=== PATIENT | female | born 1950 | race Caucasian/White ===

== ENCOUNTER → 2021-02-19 | Emergency (ER) | payer MEDICARE, OTHER ==
[~2021-02-19] MED LIST: Aspirin 81 mg Enteric Coated Tablet PO SCH; Aspirin Chewable 81 MG TAB ONE; Carvedilol 6.25 MG TAB PO SCH; Famotidine 20 MG TAB PO SCH; Lisinopril 5 MG TAB PO SCH; TICAGRELOR 90 MG TABLET PO SCH
[2021-02-19 09:51] LABS: ALT (SGPT) 41 U/L (8-55); AST (SGOT) 40 U/L (5-34); Albumin 3.9 g/dL (3.4-4.8); Alkaline Phosphatase 183 U/L (40-110); Anion Gap 12 mmol/L (10-20); BUN (Urea Nitrogen) 14 mg/dL (9.8-20.1); Bilirubin, Total 0.5 mg/dL (0.2-1.2); Calc. Creatinine Clearance 0 mL/min (70-130); Calcium 8.8 mg/dL (7.8-10.44); Carbon Dioxide 25 mmol/L (23-31); Chloride 105 mmol/L (98-107); Globulin 2.8 g/dL (2.4-3.5); Glucose 111 mg/dL (80-115); Potassium 4.4 mmol/L (3.5-5.1); Protein, Total 6.7 g/dL (5.8-8.1); Sodium 138 mmol/L (136-145)
[2021-02-19 10:18] LABS: #Eosinphils 0.2 10x3/uL (0.0-0.5); #Monocytes 0.6 10x3/uL (0.0-1.1); #Neutrophils 3.2 10x3/uL (1.5-8.4); %Basophils 0.5 % (0.0-2.0); %Eosinophils 3.9 % (0.0-6.0); %Lymphocytes 26.7 % (18.0-47.0); %Monocytes 11.2 % (0.0-10.0); %Neutrophils 57.5 % (40.0-75.0); Hemoglobin 11.6 g/dL (12.0-15.5); Mean Corpuscular HGB CONC 32.3 g/dL (32.0-36.0); Mean Platelet Volume 11.5 fl (7.4-10.4); Platelet Count 170 10x3/uL (150-450); RBC Distribution Width 13.6 % (11.5-14.5); Red Blood Cell (RBC) Count 3.52 10x6/uL (3.90-5.03); White Blood Cell (WBC) Count 5.6 10x3/uL (3.5-10.5)
[2021-02-19 12:54] LABS: Troponin I Less than 0.010 ng/mL (< 0.028)
== END | disposition home or self-care (01) ==
LOC: SUATTDRO 08:58 → CSHERS 08:58
PROVIDERS: ADMIT Family Medicine; ATTEND Family Medicine
DX: R07.89 Other chest pain (principal); M06.9 Rheumatoid arthritis, unspecified; G20 Parkinson's disease; Z79.82 Long term (current) use of aspirin; Z79.899 Other long term (current) drug therapy
CPT/HCPCS: 36415; 71045; 80053; 84484; 85025; 93005

== ENCOUNTER 2022-01-03 07:03 | Day surgery (SDC) | payer MEDICARE, OTHER ==
[2022-01-03 07:42] VITALS: BP 145/86; TEMP 97.6
== END 2022-01-03 12:17 | disposition home or self-care (01) ==
LOC: CSHSDC 07:03
PROVIDERS: ATTEND Specialist
DX: T82.855A Stenosis of coronary artery stent, initial encounter (principal); I25.118 Atherosclerotic heart disease of native coronary artery with other forms of angina pectoris; I11.0 Hypertensive heart disease with heart failure; I50.9 Heart failure, unspecified; E78.5 Hyperlipidemia, unspecified; E03.9 Hypothyroidism, unspecified; F41.8 Other specified anxiety disorders; G40.909 Epilepsy, unspecified, not intractable, without status epilepticus; G20 Parkinson's disease; Z86.718 Personal history of other venous thrombosis and embolism; Z95.0 Presence of cardiac pacemaker; Z79.899 Other long term (current) drug therapy; Z79.82 Long term (current) use of aspirin
CPT/HCPCS: 85347; 92978; 93459; C1753; C1874; C1887; C9600; 92928; 99152; 99153; J0153; J0583; J1644; J2250; J3010

== ENCOUNTER 2022-10-22 16:50 | Inpatient (IN) | payer MEDICARE, OTHER ==
[2022-10-22 17:42] LABS: #Eosinphils 0.2 10x3/uL (0.0-0.5); #Monocytes 0.8 10x3/uL (0.0-1.1); #Neutrophils 2.9 10x3/uL (1.5-8.4); %Basophils 0.2 % (0.0-2.0); %Lymphocytes 22.8 % (18.0-47.0); %Neutrophils 57.8 % (40.0-75.0); Mean Corpuscular Hemoglobin 32.2 pg (27.0-33.0); Mean Corpuscular Volume 97.4 fl (81.6-98.3); Mean Platelet Volume 11.5 fl (7.4-10.4); Platelet Count 199 10x3/uL (150-450); RBC Distribution Width 13.2 % (11.5-14.5); Red Blood Cell (RBC) Count 3.11 10x6/uL (3.90-5.03)
[2022-10-22 17:56] LABS: ALT (SGPT) 19 U/L (8-55); AST (SGOT) 21 U/L (5-34); Albumin 3.6 g/dL (3.4-4.8); Alkaline Phosphatase 127 U/L (40-110); Anion Gap 13 mmol/L (10-20); BUN (Urea Nitrogen) 26 mg/dL (9.8-20.1); Bilirubin, Total 0.3 mg/dL (0.2-1.2); Calc. Creatinine Clearance 0 mL/min (70-130); Calcium 8.6 mg/dL (7.8-10.44); Carbon Dioxide 24 mmol/L (23-31); Chloride 106 mmol/L (98-107); Estimated GFR 56; Globulin 2.6 g/dL (2.4-3.5); Glucose 109 mg/dL (83-110); Potassium 4.8 mmol/L (3.5-5.1); Protein, Total 6.2 g/dL (5.8-8.1); Sodium 138 mmol/L (136-145)
[2022-10-22] MEDS ORDERED: Acetaminophen 325 MG TAB PO PRN (20:28)
[2022-10-22] MEDS ORDERED: Calcium Carbonate 500 MG ChewTAB PO PRN (20:28)
[2022-10-22] MEDS ORDERED: Ondansetron PF 4 MG/2 ML Vial IVP PRN (20:28)
[2022-10-22] MEDS ORDERED: Guaifenesin DM 100-10/5 ML UDCUP PO PRN (20:28)
[2022-10-22] MEDS ORDERED: Senokot S 8.6-50 MG TAB PO PRN (20:28)
[2022-10-22 20:46] LABS: Troponin I Less than 0.010 ng/mL (< 0.028)
[2022-10-22] MEDS ORDERED: Nitroglycerin 4.9 GM Bottle SL PRN (20:46)
[2022-10-22] MEDS ORDERED: (Cinnamon Bark [Cinnamon] 500 MG Capsule) PO SCH (21:00)
[2022-10-22] MEDS: Propranolol HCl LA 60 MG CAP PO SCH (21:17)
[2022-10-22] MEDS: Donepezil HCl 5 MG TAB PO SCH (21:17)
[2022-10-22] MEDS: Pancrelipase DR 12,000 1 CAP PO SCH (21:17)
[2022-10-22] MEDS: lamoTRIgine 100 MG TAB PO SCH (21:17)
[2022-10-22] MEDS ORDERED: Famotidine 20 MG TAB ONE (21:24)
[2022-10-22] MEDS: Famotidine 20 MG TAB PO SCH (21:34)
[2022-10-23] MEDS: Ipratropium Bromide 2.5 ml Neb NEB SCH ×3 (02:20→13:00)
[2022-10-23 03:48] VITALS: BMI 33.4
[2022-10-23 04:54] LABS: SARS-CoV-2 NAA Rapid Test Not Detected (NotDetected)
[2022-10-23] MEDS: Levothyroxine Sodium 100 MCG TAB PO SCH (05:24)
[2022-10-23 05:44] LABS: Bilirubin Neg (Negative); Blood, Urine Negative (Negative); Clarity Clear (Clear); Glucose, Urine (Dipstick) Normal (Negative); Ketone, Urine Negative (Negative); Leukocyte 25 (Negative); Nitrite Negative (Negative); Protein, Urine (Dipstick) Negative (Neg-Trace); Specific Gravity, Urine 1.015 (1.005-1.030); Urobilinogen Normal mg/dL (Less than 2)
[2022-10-23 05:52] LABS: Bacteria/HPF None Seen HPF (None Seen); RBC/HPF 0-3 HPF (0-3); Squamous Epithelial 0-3 HPF (0-3); WBC/HPF 0-3 HPF (0-3)
[2022-10-23] MEDS ORDERED: Liothyronine Sodium 5 MCG TAB PO SCH (06:00)
[2022-10-23 06:53] LABS: Anion Gap 13 mmol/L (10-20); BUN (Urea Nitrogen) 20 mg/dL (9.8-20.1); Calc. Creatinine Clearance 89 mL/min (70-130); Calcium 8.6 mg/dL (7.8-10.44); Carbon Dioxide 23 mmol/L (23-31); Chloride 107 mmol/L (98-107); Estimated GFR 76; Glucose 102 mg/dL (83-110); Magnesium 2.2 mg/dL (1.6-2.6); Potassium 4.1 mmol/L (3.5-5.1); Sodium 139 mmol/L (136-145)
[2022-10-23] MEDS ORDERED: Venlafaxine 75 MG TAB PO SCH (09:00)
[2022-10-23] MEDS ORDERED: FLU VACC QS2022-23(65YR UP)/PF 240 MCG/0.7 ML SYRINGE IM ONE (09:00)
[2022-10-23 09:54] LABS: Free T4 (Free Thyroxine) 1.13 ng/dL (0.70-1.48)
[2022-10-23] MEDS: Venlafaxine HCl XR 75 MG CAP PO SCH (11:33)
[2022-10-23] MEDS: Prasugrel 10 MG TAB PO SCH (11:33)
[2022-10-23] MEDS: Famotidine 20 MG TAB PO SCH ×2 (11:33→21:20)
[2022-10-23] MEDS: Aspirin 81 mg Enteric Coated Tablet PO SCH (11:33)
[2022-10-23] MEDS: Atorvastatin Calcium 40 MG TAB PO SCH (11:33)
[2022-10-23] MEDS: Cholecalciferol 1,000 UNITS (25 MCG) TAB PO SCH (11:34)
[2022-10-23] MEDS: Ascorbic Acid 500 mg Chewable Tablet PO SCH (11:34)
[2022-10-23] MEDS: Folic Acid 1 MG TAB PO SCH (11:35)
[2022-10-23] MEDS: Cyanocobalamin (Vitamin B-12) 1,000 MCG TAB PO SCH (11:35)
[2022-10-23] MEDS: Enoxaparin Sodium 40 MG/0.4 ML SYRINGE SC SCH (11:35)
[2022-10-23] MEDS: Pancrelipase DR 12,000 1 CAP PO SCH ×2 (11:36→14:14)
[2022-10-23] MEDS: Donepezil HCl 5 MG TAB PO SCH (11:40)
[2022-10-23] MEDS ORDERED: Ipratropium Bromide 2.5 ml Neb NEB PRN ×2 (15:06→16:28)
[2022-10-23] MEDS ORDERED: Furosemide 40 MG/4 ML VIAL SLOW IVP SCH (17:00)
[2022-10-23] MEDS ORDERED: Clorazepate 3.75 MG TAB PO SCH (21:00)
[2022-10-23] MEDS: Propranolol HCl LA 60 MG CAP PO SCH (21:12)
[2022-10-23] MEDS: Ubidecarenone 50 MG CAP PO SCH (21:12)
[2022-10-23] MEDS: lamoTRIgine 100 MG TAB PO SCH (21:13)
[2022-10-23] MEDS ORDERED: Melatonin 3 MG TAB PO PRN (21:39)
[2022-10-24] MEDS ORDERED: traMADol HCl 50 MG TAB PO PRN (00:27)
[2022-10-24] MEDS: Cholecalciferol 1,000 UNITS (25 MCG) TAB PO SCH (06:24)
[2022-10-24] MEDS: Cyanocobalamin (Vitamin B-12) 1,000 MCG TAB PO SCH (06:25)
[2022-10-24] MEDS: Levothyroxine Sodium 100 MCG TAB PO SCH (06:25)
[2022-10-24] MEDS: Ubidecarenone 50 MG CAP PO SCH ×2 (06:26→22:44)
[2022-10-24] MEDS: Venlafaxine HCl XR 75 MG CAP PO SCH (06:27)
[2022-10-24] MEDS: Famotidine 20 MG TAB PO SCH ×2 (06:29→22:46)
[2022-10-24] MEDS: Folic Acid 1 MG TAB PO SCH (06:29)
[2022-10-24] MEDS: Atorvastatin Calcium 40 MG TAB PO SCH (06:29)
[2022-10-24] MEDS: Liothyronine Sodium 5 MCG TAB PO SCH (06:30)
[2022-10-24] MEDS ORDERED: Nitroglycerin 50 MG/250 ML BOT 0 ML ONE (07:03)
[2022-10-24] MEDS ORDERED: Heparin 10,000 UNITS/ 10 ML VIAL ONE (07:03)
[2022-10-24] MEDS ORDERED: Lidocaine 1% (PF) 30 ML VIAL ONE (07:03)
[2022-10-24] MEDS ORDERED: Adenosine 6 MG/2 ML VIAL ONE (07:04)
[2022-10-24] MEDS ORDERED: Verapamil 5 MG/2 ML VIAL ONE (07:04)
[2022-10-24] MEDS ORDERED: Bivalirudin 250 MG VIAL ONE (07:05)
[2022-10-24] MEDS: Enoxaparin Sodium 40 MG/0.4 ML SYRINGE SC SCH (07:41)
[2022-10-24] MEDS: Prasugrel 10 MG TAB PO SCH (07:42)
[2022-10-24] MEDS: Aspirin 81 mg Enteric Coated Tablet PO SCH (07:47)
[2022-10-24] MEDS: Ascorbic Acid 500 mg Chewable Tablet PO SCH (07:47)
[2022-10-24] MEDS ORDERED: Midazolam HCl 2 mg/2 ml Vial ONE (08:14)
[2022-10-24] MEDS ORDERED: Fentanyl 100 MCG/2 ML VIAL ONE (08:14)
[2022-10-24] MEDS: Donepezil HCl 5 MG TAB PO SCH (10:31)
[2022-10-24] MEDS ORDERED: Nitroglycerin 0.4 MG TAB (25 Tab Bottle) SL PRN (10:43)
[2022-10-24] MEDS ORDERED: Sodium Chloride 0.9% 200 ML IV PRN (10:43)
[2022-10-24] MEDS ORDERED: Acetaminophen/Codeine 30-300mg Tablet PO PRN ×2 (10:43)
[2022-10-24] MEDS ORDERED: Lorazepam 1 MG TAB PO PRN (10:57)
[2022-10-24] MEDS ORDERED: Electrolyte Replacement Protocol 1 EACH FS SCH (11:00)
[2022-10-24] MEDS: Sodium Chloride 0.9% 1,000 ML IV SCH ×2 (11:07→18:49)
[2022-10-24] MEDS ORDERED: Iopamidol 300 61% 100 ML VIAL FS ONE (11:34)
[2022-10-24] MEDS ORDERED: Lidocaine 5% Patch TD SCH (12:00)
[2022-10-24 12:05] LABS: #Eosinphils 0.2 10x3/uL (0.0-0.5); #Monocytes 0.7 10x3/uL (0.0-1.1); #Neutrophils 2.8 10x3/uL (1.5-8.4); %Basophils 0.4 % (0.0-2.0); %Eosinophils 3.1 % (0.0-6.0); %Lymphocytes 24.8 % (18.0-47.0); %Monocytes 13.6 % (0.0-10.0); %Neutrophils 57.9 % (40.0-75.0); Hemoglobin 10.4 g/dL (12.0-15.5); Mean Corpuscular Hemoglobin 32.5 pg (27.0-33.0); Mean Corpuscular Volume 98.4 fl (81.6-98.3); Mean Platelet Volume 11.5 fl (7.4-10.4); Platelet Count 187 10x3/uL (150-450); RBC Distribution Width 13.1 % (11.5-14.5); White Blood Cell (WBC) Count 4.8 10x3/uL (3.5-10.5)
[2022-10-24 13:12] LABS: Syphilis Antibody Nonreactive (Nonreactive); Syphilis Antibody Index 0.03 S/CO (<1.00 Non-Reactive)
[2022-10-24] MEDS: Propranolol HCl LA 60 MG CAP PO SCH (21:00)
[2022-10-24] MEDS: lamoTRIgine 100 MG TAB PO SCH (22:45)
[2022-10-24] MEDS ORDERED: Transdermal Patch Removal TOP SCH (23:59)
[2022-10-25] MEDS: Sodium Chloride 0.9% 1,000 ML IV SCH (03:21)
[2022-10-25] MEDS: Liothyronine Sodium 5 MCG TAB PO SCH (05:05)
[2022-10-25] MEDS: Levothyroxine Sodium 100 MCG TAB PO SCH (05:05)
[2022-10-25 07:49] VITALS: TEMP 98.1
[2022-10-25] MEDS ORDERED: Thiamine 100 MG TAB PO SCH (09:00)
[2022-10-25] MEDS ORDERED: Multivit, Therapeutic 1 TAB PO SCH (09:00)
[2022-10-25] MEDS: Enoxaparin Sodium 40 MG/0.4 ML SYRINGE SC SCH (09:20)
[2022-10-25] MEDS: Folic Acid 1 MG TAB PO SCH (09:20)
[2022-10-25] MEDS: Cholecalciferol 1,000 UNITS (25 MCG) TAB PO SCH (09:21)
[2022-10-25] MEDS: Aspirin 81 mg Enteric Coated Tablet PO SCH (09:21)
[2022-10-25] MEDS: Donepezil HCl 5 MG TAB PO SCH (09:22)
[2022-10-25] MEDS: Ascorbic Acid 500 mg Chewable Tablet PO SCH (09:23)
[2022-10-25] MEDS: Venlafaxine HCl XR 75 MG CAP PO SCH (09:23)
[2022-10-25] MEDS: Cyanocobalamin (Vitamin B-12) 1,000 MCG TAB PO SCH (09:24)
[2022-10-25] MEDS: Atorvastatin Calcium 40 MG TAB PO SCH (09:24)
[2022-10-25] MEDS: Famotidine 20 MG TAB PO SCH (09:24)
[2022-10-25] MEDS: Ubidecarenone 50 MG CAP PO SCH (09:24)
[2022-10-25] MEDS: Prasugrel 10 MG TAB PO SCH (09:24)
[2022-10-25] MEDS ORDERED: Lorazepam 1 MG TAB PO PRN (10:57)
[2022-10-25 12:12] VITALS: BP 129/75
[2022-10-26] MEDS ORDERED: Lorazepam 1 MG TAB PO PRN (10:57)
[2022-10-27] MEDS ORDERED: Lorazepam 0.5 MG TAB PO PRN (10:57)
[2022-10-27] MEDS ORDERED: Thiamine 100 MG TAB PO SCH (11:00)
== END 2022-10-25 12:10 | disposition home or self-care (01) | DRG 287 ==
LOC: CSHERS 16:50 → INTOOBSV 20:23 → CSHERHOLD 20:23 → CSHTELE 10-23 03:18 → OBSVTOIN 10-24 11:10
PROVIDERS: ADMIT Student in an Organized Health Care Education/Training Program; ATTEND Family Medicine
PROC: 4A023N7 Measurement of Cardiac Sampling and Pressure, Left Heart, Percutaneous Approach (ICD-10-PCS; principal; 2022-10-24)
PROC: B2111ZZ Fluoroscopy of Multiple Coronary Arteries using Low Osmolar Contrast (ICD-10-PCS; 2022-10-24)
PROC: B2151ZZ Fluoroscopy of Left Heart using Low Osmolar Contrast (ICD-10-PCS; 2022-10-24)
PROC: B2181ZZ Fluoroscopy of Left Internal Mammary Bypass Graft using Low Osmolar Contrast (ICD-10-PCS; 2022-10-24)
PROC: B2121ZZ Fluoroscopy of Single Coronary Artery Bypass Graft using Low Osmolar Contrast (ICD-10-PCS; 2022-10-24)
DX: I25.118 Atherosclerotic heart disease of native coronary artery with other forms of angina pectoris (principal); J84.9 Interstitial pulmonary disease, unspecified; I50.42 Chronic combined systolic (congestive) and diastolic (congestive) heart failure; I11.0 Hypertensive heart disease with heart failure; Z20.822 Contact with and (suspected) exposure to COVID-19; E78.5 Hyperlipidemia, unspecified; E03.9 Hypothyroidism, unspecified; G20 Parkinson's disease; I48.0 Paroxysmal atrial fibrillation; F41.9 Anxiety disorder, unspecified; F32.A Depression, unspecified; F02.A0 Dementia in other diseases classified elsewhere, mild, without behavioral disturbance, psychotic disturbance, mood disturbance, and anxiety; I49.5 Sick sinus syndrome; G40.909 Epilepsy, unspecified, not intractable, without status epilepticus; G25.0 Essential tremor; R53.81 Other malaise; F10.90 Alcohol use, unspecified, uncomplicated; R53.1 Weakness; D64.9 Anemia, unspecified; Z79.899 Other long term (current) drug therapy; Z79.82 Long term (current) use of aspirin; Z98.84 Bariatric surgery status; Z79.890 Hormone replacement therapy; Z95.1 Presence of aortocoronary bypass graft; Z95.5 Presence of coronary angioplasty implant and graft; Z86.718 Personal history of other venous thrombosis and embolism; Z91.030 Bee allergy status; Z91.040 Latex allergy status; Z88.8 Allergy status to other drugs, medicaments and biological substances; Z90.710 Acquired absence of both cervix and uterus; Z90.49 Acquired absence of other specified parts of digestive tract; Z95.0 Presence of cardiac pacemaker; Z82.49 Family history of ischemic heart disease and other diseases of the circulatory system
CPT/HCPCS: 36415; 36416; 70450; 71045; 72040; 80048; 80053; 81001; 82607; 83735; 83880; 84439; 84443; 84484; 85025; 85379; 86780; 93005; 93306; 93459; 94760; 96372; 96374; 97139; 99152; 99153; C1769; C1894; G0378; J0153; J0583; J1644; J1650; J1940; J2001; J2250; J3010; J7050; Q9967

== ENCOUNTER 2022-12-01 21:46 | Emergency (ER) | payer MEDICARE, OTHER ==
[2022-12-01 23:01] LABS: #Eosinphils 0.3 10x3/uL (0.0-0.5); #Monocytes 0.9 10x3/uL (0.0-1.1); #Neutrophils 3.5 10x3/uL (1.5-8.4); %Basophils 0.5 % (0.0-2.0); %Eosinophils 4.9 % (0.0-6.0); %Monocytes 13.6 % (0.0-10.0); %Neutrophils 53.8 % (40.0-75.0); Hemoglobin 11.4 g/dL (12.0-15.5); Mean Corpuscular Hemoglobin 30.2 pg (27.0-33.0); Mean Corpuscular Volume 91.5 fl (81.6-98.3); Mean Platelet Volume 11.6 fl (7.4-10.4); Platelet Count 208 10x3/uL (150-450); RBC Distribution Width 13.9 % (11.5-14.5); Red Blood Cell (RBC) Count 3.77 10x6/uL (3.90-5.03); White Blood Cell (WBC) Count 6.5 10x3/uL (3.5-10.5)
[2022-12-01 23:14] LABS: ALT (SGPT) 26 U/L (8-55); AST (SGOT) 30 U/L (5-34); Albumin 4.2 g/dL (3.4-4.8); Alkaline Phosphatase 139 U/L (40-110); Anion Gap 13 mmol/L (10-20); BUN (Urea Nitrogen) 16 mg/dL (9.8-20.1); Bilirubin, Total 0.4 mg/dL (0.2-1.2); Calc. Creatinine Clearance 0 mL/min (70-130); Calcium 9.8 mg/dL (7.8-10.44); Carbon Dioxide 25 mmol/L (23-31); Chloride 105 mmol/L (98-107); Estimated GFR 66; Globulin 3.6 g/dL (2.4-3.5); Glucose 96 mg/dL (83-110); Potassium 4.3 mmol/L (3.5-5.1); Protein, Total 7.8 g/dL (5.8-8.1); Sodium 139 mmol/L (136-145)
[2022-12-01 23:40] LABS: SARS-CoV-2 NAA Rapid Test Not Detected (NotDetected)
== END 2022-12-02 01:54 | disposition home or self-care (01) ==
LOC: CSHERS 21:46
DX: R06.02 Shortness of breath (principal); N95.1 Menopausal and female climacteric states; Z20.822 Contact with and (suspected) exposure to COVID-19; I25.10 Atherosclerotic heart disease of native coronary artery without angina pectoris; K21.9 Gastro-esophageal reflux disease without esophagitis; E03.9 Hypothyroidism, unspecified; E78.5 Hyperlipidemia, unspecified; Z86.718 Personal history of other venous thrombosis and embolism; Z79.899 Other long term (current) drug therapy; Z79.01 Long term (current) use of anticoagulants
CPT/HCPCS: 0240U; 71045; 83880; 84484; 93005; 80053; 84443; 85025